=== PATIENT | female | born 1950 | race Caucasian/White ===

== ENCOUNTER 2022-05-26 09:25 | Emergency (ER) | payer MEDICARE, SELFPAY ==
[2022-05-26 09:31] VITALS: BP 151/117; PULSE 100; RESP 16; O2SAT 98; BMI 20.4
--- NOTE | 2022-05-26 10:00 | CRLHL7_ITS ---
For Patients: As a result of the Century Cures Act, medical imaging exams and procedure reports are released immediately into your electronic medical record. You may view this report before your referring provider. If you have questions, please contact your health care provider. INDICATION: CHEST TIGHTNESS. HX OF BREAST AND THYROID CANCER COMPARISON: None TECHNIQUE: CT volumetric acquisition was performed of the thorax during intravenous infusion of 95 cc Isovue 370 nonionic intravenous contrast. Please note that all CT scans at this facility use dose modulation, iterative reconstruction, and/or weight-based dosing when appropriate to reduce radiation dose to as low as reasonably achievable. FINDINGS: No pulmonary embolism is present. Severe pectus excavatum deformity noted. Postoperative changes to the left breast and left axilla. Right breast implant with lobular contour and adjacent fluid laterally. Postop changes to the right breast also noted with surgical clips. No aortic dissection. Coarse calcifications right thyroid lobe. No acute fracture. Areas of atelectasis/scarring are present within the right lower lobe. No pleural effusion. No pneumothorax. No adenopathy. Thickening of the left adrenal gland. IMPRESSION: No evidence of pulmonary thromboembolism. Right lower lobe atelectasis/scarring. Chronic changes to the right breast implant with suspicion of chronic rupture. There is fluid adjacent to the lateral aspect of the implant. Surgical consultation with the patient`s plastic surgeon may be useful as an outpatient. Please note that all CT scans at this facility use dose modulation, iterative reconstruction, and/or weight-based dosing when appropriate to reduce radiation dose to as low as reasonably achievable. Dictated by Bryan Stapleton MD @ 05/26/2022 12:02:43 PM (Electronically Signed)
--- NOTE | 2022-05-26 10:02 | ED_ITS ---
HPI - General Adult General Time Seen by Provider: 10:03 Date Seen: 05/26/22 Chief complaint: Unspecified Complaint, Adult Stated complaint: thyroid cancer, not feeling well Time Seen by Provider: 05/26/22 10:00 Source: patient Mode of arrival: ambulatory Limitations: no limitations History of Present Illness HPI narrative: Patient is a 71-year-old female who has a history of thyroid cancer, apparently scheduled to get this removed upcoming in [place] with an ENT cancer surgeon. She reports that she has had some shakiness, jitteriness, chest tightness over the last few days, her blood pressure is noted be elevated today. She is generally anxious about her situation. She has had no leg swelling or edema bleeding or clotting problems. Patient does have a history of what sounds like rheumatoid arthritis and osteoarthritis. She sees Dr. Donald for primary care. She has had COVID in the past, she denies fever chills, she has had occasional sinus infection, occasional cough. She really does not describe chest pain now she states if she turns a certain way, or takes a deep breath she can feel some right-sided chest tightness. Related Data Previous Rx's Medication Instructions Recorded lorazepam 0.5 mg tablet (Ativan) 0.5 mg PO BID PRN #14 tabs 05/26/22 Review of Systems Status of ROS: Reports: 10 or more systems reviewed and unremarkable except as noted in History and below PFSH PFS Social History Smoking Status: Former smoker How often do you have a drink containing alcohol: 4 or more times a week How many standard drinks containing alcohol do you have on a typical day: 7 to 9 How often do you have six or more drinks on one occasion: Daily or almost daily AUDIT-C Alcohol total score: 11 Non-prescribed substance use: other [facility]-pres[facility] Exam Narrative: Exam Narrative: Objective: Patient is alert or x3, slightly anxious Vital signs show elevated blood pressure HEENT is unremarkable neck shows some fullness on the right side Chest is clear Heart rhythm regular heart murmur, no palpable chest wall pain Abdomen benign soft nontender no masses Extremities are no edema neurologic nonfocal Skin warm and dry Good peripheral perfusion noted. Const: Vital Signs, click to edit/add: Vital Signs - 24 hr 05/26/22 09:31 05/26/22 10:42 05/26/22 11:02 Pulse Rate [Left P ulse Oximeter] 100 Respiratory Rate 16 Blood Pressure 152/122 H Blood Pressure [Le ft Upper Arm] 151/117 H Pulse Oximetry 98 100 Oxygen Delivery Me thod Room Air 05/26/22 12:16 05/26/22 12:13 Pulse Rate [Left P ulse Oximeter] Respiratory Rate Blood Pressure 156/102 H Blood Pressure [Le ft Upper Arm] 156/104 H Pulse Oximetry Oxygen Delivery Me thod Course Vital Signs Vital signs: Initial Vital Signs Temperature Source Temporal Artery Scan 05/26/22 09:31 Pulse Rate 100 05/26/22 09:31 Pulse Rhythm 05/26/22 09:31 Pulse Strength 3+ Normal 05/26/22 09:31 Respiratory Rate 16 05/26/22 09:31 Blood Pressure 151/117 H 05/26/22 09:31 Blood Pressure Mean 128 05/26/22 09:31 Blood Pressure Position Sitting 05/26/22 09:31 Pulse Oximetry 98 05/26/22 09:31 Oxygen Delivery Method 05/26/22 09:31 Vital Signs Pulse Rate 100 05/26/22 09:31 Respiratory Rate 16 05/26/22 09:31 Blood Pressure 151/117 H 05/26/22 09:31 Pulse Oximetry 98 05/26/22 09:31 Oxygen Delivery Method 05/26/22 09:31 Pulse Rate 100 05/26/22 09:31 Respiratory Rate 16 05/26/22 09:31 Blood Pressure 156/104 H 05/26/22 12:16 Pulse Oximetry 100 05/26/22 10:42 Oxygen Delivery Method 05/26/22 09:31 Medical Decision Making MDM Narrative Medical decision making narrative: Patient's history of thyroid cancer scheduled to be removed, she is anxious. She also reports he has been drinking more lately to try and take down some of the anxiety. Will check an alcohol level, IV fluids, Ativan for anxiety, will check EKG, troponin, chest CT scan given her chest tightness and history of cancer to rule out PE. Laboratory studies electrolytes. TSH. Disposition pending findings and lab studies Addendum: Patient's CT scan of the chest shows no evidence of pulmonary thromboembolism there is some right lower lobe atelectasis scarring chronic change of the right breast implant with suspicion of chronic rupture. Blood pressure diastolic remains a little bit elevated this will be retested CRP is negative white count is normal hemoglobin is normal glucose is nonfasting at 1:35 a.m. electrolytes otherwise unremarkable P on creatinine normal CRP less than 0.5 proBNP 11 50 alcohol level less than 0.01 negative COVID influenza and RSV. This point I think will recheck the patient's blood pressure and she should have this redone in the clinic as well. Blood pressure on recheck was 150/105 to, the patient will be given a few Ativan for home given her anxiety level. Follow up with regular doctor as needed Lab Data Labs: Lab Results 05/26/22 05/26/22 05/26/22 Range/Units 10:32 10:33 10:33 WBC 9.72 (4.50-11.00) K/uL RBC 5.31 H (4.00-5.20) m/uL Hgb 14.9 (12.0-16.0) gm/dL Hct 46.5 (33.0-51.0) % MCV 88 (80-100) fL MCH 28 (26-34) pg MCHC 32 (32-36) gm/dL RDW Coeff of [place]ubham 16.3 H (11.5-15.5) % Plt Count 320 (140-440) K/uL Neut % (Auto) 79.5 H (42.0-72.0) % Lymph % (Auto) 7.8 L (20-44) % [place] % (Auto) 11.8 H (0.0-11.0) % Eos % (Auto) 0.1 (0.0-7.0) % Baso % (Auto) 0.4 (0.0-3.0) % Neut # (Auto) 7.70 H (1.7-7.0) K/uL Lymph # (Auto) 0.80 L (0.90-2.90) K/uL [place] # (Auto) 1.10 H (0.00-0.90) K/UL Eos # (Auto) 0.01 (0.00-0.50) K/uL Baso # (Auto) 0.04 (0.00-0.30) K/uL Abs Immat Gran (auto) 0.04 (0.00-0.30) K/uL INR (0.91-1.10) Sodium 136 (135-149) mmol/L Potassium 4.3 (3.6-5.1) mmol/L Chloride 102 (96-114) mmol/L Carbon Dioxide 27 (20-32) mmol/L BUN 7 (7-30) mg/dL Creatinine 0.7 (0.5-1.5) mg/dL Estimated Creat Clear 48.03 Estimated GFR 92 ml/min Glucose 135 H (60-115) mg/dL Calcium 10.4 (8.4-10.6) mg/dL Total Bilirubin (0.1-1.5) mg/dL Direct Bilirubin (0.0-0.5) mg/dL AST (12-35) U/L ALT (4-35) U/L Alkaline Phosphatase (40-150) U/L Troponin I (0.01-0.04) ng/mL C-Reactive Protein < 0.5 L (0.5-1.0) mg/dL NT-Pro-B Natriuret Pep (0-125) PG/mL Total Protein (6.0-8.3) g/dL Albumin (3.3-5.0) g/dL TSH (0.270-4.20) uIU/mL Ethyl Alcohol (0.01-0.03) % SARS-CoV-2 (PCR) Negative SARS-CoV-2 (Negative) Influenza Type A (PCR) Negative PCR FLU A (Negative) Influenza Type B (PCR) Negative PCR FLU B (Negative) RSV (PCR) Negative PCR RSV (Negative) 05/26/22 05/26/22 05/26/22 Range/Units 10:33 10:33 10:33 WBC (4.50-11.00) K/uL RBC (4.00-5.20) m/uL Hgb (12.0-16.0) gm/dL Hct (33.0-51.0) % MCV (80-100) fL MCH (26-34) pg MCHC (32-36) gm/dL RDW Coeff of [place]ubham (11.5-15.5) % Plt Count (140-440) K/uL Neut % (Auto) (42.0-72.0) % Lymph % (Auto) (20-44) % [place] % (Auto) (0.0-11.0) % Eos % (Auto) (0.0-7.0) % Baso % (Auto) (0.0-3.0) % Neut # (Auto) (1.7-7.0) K/uL Lymph # (Auto) (0.90-2.90) K/uL [place] # (Auto) (0.00-0.90) K/UL Eos # (Auto) (0.00-0.50) K/uL Baso # (Auto) (0.00-0.30) K/uL Abs Immat Gran (auto) (0.00-0.30) K/uL INR 0.92 (0.91-1.10) Sodium (135-149) mmol/L Potassium (3.6-5.1) mmol/L Chloride (96-114) mmol/L Carbon Dioxide (20-32) mmol/L BUN (7-30) mg/dL Creatinine (0.5-1.5) mg/dL Estimated Creat Clear Estimated GFR ml/min Glucose (60-115) mg/dL Calcium (8.4-10.6) mg/dL Total Bilirubin 1.2 (0.1-1.5) mg/dL Direct Bilirubin 0.1 (0.0-0.5) mg/dL AST 52 H (12-35) U/L ALT 30 (4-35) U/L Alkaline Phosphatase 131 (40-150) U/L Troponin I 0.04 (0.01-0.04) ng/mL C-Reactive Protein (0.5-1.0) mg/dL NT-Pro-B Natriuret Pep 1150 H (0-125) PG/mL Total Protein 7.2 (6.0-8.3) g/dL Albumin 4.5 (3.3-5.0) g/dL TSH 3.010 (0.270-4.20) uIU/mL Ethyl Alcohol (0.01-0.03) % SARS-CoV-2 (PCR) (Negative) Influenza Type A (PCR) (Negative) Influenza Type B (PCR) (Negative) RSV (PCR) (Negative) 05/26/22 Range/Units 10:33 WBC (4.50-11.00) K/uL RBC (4.00-5.20) m/uL Hgb (12.0-16.0) gm/dL Hct (33.0-51.0) % MCV (80-100) fL MCH (26-34) pg MCHC (32-36) gm/dL RDW Coeff of [place] (11.5-15.5) % Plt Count (140-440) K/uL Neut % (Auto) (42.0-72.0) % Lymph % (Auto) (20-44) % [place] % (Auto) (0.0-11.0) % Eos % (Auto) (0.0-7.0) % Baso % (Auto) (0.0-3.0) % Neut # (Auto) (1.7-7.0) K/uL Lymph # (Auto) (0.90-2.90) K/uL [place] # (Auto) (0.00-0.90) K/UL Eos # (Auto) (0.00-0.50) K/uL Baso # (Auto) (0.00-0.30) K/uL Abs Immat Gran (auto) (0.00-0.30) K/uL INR (0.91-1.10) Sodium (135-149) mmol/L Potassium (3.6-5.1) mmol/L Chloride (96-114) mmol/L Carbon Dioxide (20-32) mmol/L BUN (7-30) mg/dL Creatinine (0.5-1.5) mg/dL Estimated Creat Clear Estimated GFR ml/min Glucose (60-115) mg/dL Calcium (8.4-10.6) mg/dL Total Bilirubin (0.1-1.5) mg/dL Direct Bilirubin (0.0-0.5) mg/dL AST (12-35) U/L ALT (4-35) U/L Alkaline Phosphatase (40-150) U/L Troponin I (0.01-0.04) ng/mL C-Reactive Protein (0.5-1.0) mg/dL NT-Pro-B Natriuret Pep (0-125) PG/mL Total Protein (6.0-8.3) g/dL Albumin (3.3-5.0) g/dL TSH (0.270-4.20) uIU/mL Ethyl Alcohol < 0.01 L (0.01-0.03) % SARS-CoV-2 (PCR) (Negative) Influenza Type A (PCR) (Negative) Influenza Type B (PCR) (Negative) RSV (PCR) (Negative) Discharge Plan Discharge Clinical Impression: Cancer of thyroid, Chest tightness Prescriptions: New lorazepam [Ativan] 0.5 mg tablet 0.5 mg PO BID PRNQty: 14 0RF Follow Up/Referrals: Elise Alvarez DO [Primary Care Provider] -
[2022-05-26] MEDS: 0.9 % SODIUM CHLORIDE 1000 ml 1,000 ML 6000 ML IV (10:38)
[2022-05-26] MEDS: LORazepam 2 MG/ML inj 1 MG IVP (10:38)
[2022-05-26 10:42] VITALS: O2SAT 100
[2022-05-26 10:47] LABS: Basophils Absolute Auto 0.04 K/uL (0.00-0.30); Basophils Percent Auto 0.4 % (0.0-3.0); Eosinophils Absolute Auto 0.01 K/uL (0.00-0.50); Eosinophils Percent Auto 0.1 % (0.0-7.0); Hematocrit 46.5 % (33.0-51.0); Hemoglobin* 14.9 gm/dL (12.0-16.0); Immature Granulocytes Abs Auto 0.04 K/uL (0.00-0.30); Lymphocytes Percent Auto 7.8 % (20-44); Mean Corpuscular HGB Conc 32 gm/dL (32-36); Mean Corpuscular Hemoglobin 28 pg (26-34); Mean Corpuscular Volume 88 fL (80-100); Monocytes Percent Auto 11.8 % (0.0-11.0); Neutrophils Percent Auto 79.5 % (42.0-72.0); Platelet Count* 320 K/uL (140-440); RDW Coefficient of Variation % 16.3 % (11.5-15.5); Red Blood Count 5.31 m/uL (4.00-5.20); White Blood Count* 9.72 K/uL (4.50-11.00)
[2022-05-26 10:49] LABS: Slide Review Reflex No
[2022-05-26 11:01] LABS: Chloride* 102 mmol/L (96-114); Potassium* 4.3 mmol/L (3.6-5.1); Sodium* 136 mmol/L (135-149)
[2022-05-26 11:02] VITALS: BP 152/122
[2022-05-26 11:02] LABS: INR 0.92 (0.91-1.10); Prothrombin Time 12.9 Seconds
[2022-05-26 11:03] LABS: Albumin* 4.5 g/dL (3.3-5.0)
[2022-05-26 11:04] LABS: Creatinine* 0.7 mg/dL (0.5-1.5); Est. Creatinine Clearance* 48.03; Estimated Glomerular Filt Rate 92 ml/min
[2022-05-26 11:05] LABS: Aspartate Amino Transferase* 52 U/L (12-35); Bilirubin Direct* 0.1 mg/dL (0.0-0.5); Bilirubin Total* 1.2 mg/dL (0.1-1.5); Blood Urea Nitrogen* 7 mg/dL (7-30); Calcium* 10.4 mg/dL (8.4-10.6); Carbon Dioxide* 27 mmol/L (20-32); Glucose* 135 mg/dL (60-115); Total Protein* 7.2 g/dL (6.0-8.3)
[2022-05-26 11:06] LABS: Alanine Aminotransferase* 30 U/L (4-35); Alkaline Phosphatase* 131 U/L (40-150)
[2022-05-26 11:07] LABS: Ethanol* < 0.01 % (0.01-0.03)
[2022-05-26 11:08] LABS: C Reactive Protein* < 0.5 mg/dL (0.5-1.0)
[2022-05-26 11:14] LABS: NT Pro B Type NatriureticPept* 1150 PG/mL (0-125)
[2022-05-26 11:17] LABS: Troponin I* 0.04 ng/mL (0.01-0.04)
[2022-05-26 11:38] LABS: PCR FLU A Negative PCR FLU A (Negative); PCR FLU B Negative PCR FLU B (Negative); PCR RSV Negative PCR RSV (Negative)
[2022-05-26 11:40] LABS: SARS PCR* Negative SARS-CoV-2 (Negative)
[2022-05-26 12:13] VITALS: BP 156/102
[2022-05-26 12:16] VITALS: BP 156/104
== END 2022-05-26 12:28 | disposition home or self-care (01) ==
LOC: ED 11:04
PROVIDERS: Emergency Provider Family Medicine; PCP Family Medicine
DX: R07.89 Other chest pain (principal); C73 Malignant neoplasm of thyroid gland
CPT/HCPCS: 36415; 71260; 80048; 80076; 82077; 83880; 84443; 84484; 85025; 85610; 86140; 87502; 87634; 87635; 93005; 94761; 96374; 99284; 99285; J2060; J7030; Q9967

== ENCOUNTER 2022-10-29 13:33 | Outpatient (CLI) | payer MEDICARE, SELFPAY ==
--- NOTE | 2022-10-29 14:00 | CRLHL7_ITS ---
For Patients: As a result of the Century Cures Act, medical imaging exams and procedure reports are released immediately into your electronic medical record. You may view this report before your referring provider. If you have questions, please contact your health care provider. BILATERAL BREAST MRI WITHOUT AND WITH GADOLINIUM, 10/29/2022 CLINICAL HISTORY: BILATERAL mastectomy 12/11/2009 due to LEFT breast cancer. Patient has had silicone breast implant revision reconstruction on the RIGHT with LEFT breast reconstruction without implant. Implant had been removed from the LEFT chest previously. INDICATION FOR BREAST MRI: Evaluate implant for rupture.Screen for malignancy. COMPARISON STUDIES: None. CONTRAST: Dotarem 15 mL. TECHNIQUE: The patient was positioned prone using a breast coil. Multiple imaging sequences were obtained using 1-1.5 mm thick slices with no gap. The image sequences include T2-weighted STIR in the axial plane, T1-weighted nonfat-saturated gradient echo in the axial plane, pre- and post-contrast T1-weighted FLASH 3D with fat suppression in the axial plane, and T1-weighted FLASH high-resolution 3D with fat suppression in the sagittal plane. Image post-processing was performed on a [employer] workstation. Complex 3D rendering including maximum intensity projections (MIPS) and volumetric renderings were obtained to optimize visualization of the extent of pathology and relationship to the nipple, skin, and chest wall. This aids in determining feasibility of breast conservation surgery. Subtraction, multiplanar reconstruction, mean curve determination, and angiogenesis mapping were also performed. The study was technically adequate. FINDINGS: Breast Density: Not applicable. Breast Background Enhancement: Not applicable. RIGHT Breast: RIGHT reconstructed breast shows an extracapsular rupture of the RIGHT implant. There is free silicone seen laterally. There is positive keyhole signs of the implant. No suspicious mass or non mass enhancement in the reconstructed RIGHT breast. LEFT Breast: LEFT reconstructed breast is negative. Lymph Nodes: No enlarged lymph nodes. IMPRESSIONS: Extracapsular rupture RIGHT silicone breast implant. Negative for signs of malignancy. RECOMMENDATION: Follow up as clinically needed. BI-RADS: BI-RADS Category 2: Benign. Oralia Elliott M.D. Body/Breast Radiologist [email or web address] [email or web address]/[email or web address] JR/Dictated by: Oralia Elliott MD @ 10/30/2022 1:24:00 PM (Electronically Signed)
== END 2022-10-29 13:34 | disposition home or self-care (01) ==
PROVIDERS: PCP Family Medicine; Visit Provider Plastic Surgery
DX: T85.43XA Leakage of breast prosthesis and implant, initial encounter (principal); Z12.31 Encounter for screening mammogram for malignant neoplasm of breast
CPT/HCPCS: 77047

== ENCOUNTER 2024-12-23 09:45 | Emergency (ER) | payer MEDICARE, BC, SELFPAY ==
--- OUTSIDE RECORDS SUMMARY | 2021-02-21 09:10 | XMS_ITS | Continuity of Care Document ---
Author Organization [facility] Address [address] [place] [address] Phone Care Team Providers Care Cost Controller Name Role Phone Otis Marin MD Unavailable Unavailable Allergies, Adverse Reactions, Alerts Substance Reaction Status Criticality ANESTHESIA TRAY Active No Informati on Medications Medication Instructions Dosage Effective Dates (start - stop) Status Comments methotrexate sodium 2.5 mg tablet take 10 (25MG) by ORAL route every week all tabs once per week 25 MG - Active ibuprofen 200 mg tablet take 2 tablet (400MG) by oral route as needed - Active VITAMIN D3 (unknown strength) take daily Not Available - Active Procedures Procedure Date Office/Outpatient Visit, Est Routine Venipuncture Rbc Sed Rate, Nonautomated Assay Of Serum Albumin Assay Of Creatinine Transferase (Ast) (Sgot) Alanine Amino (Alt) (Sgpt) CReactive Protein Complete Cbc WAuto Diff Wbc Office/Outpatient Visit, Est Routine Venipuncture Rbc Sed Rate, Nonautomated Assay Of Serum Albumin Assay Of Creatinine Transferase (Ast) (Sgot) Alanine Amino (Alt) (Sgpt) CReactive Protein Complete Cbc WAuto Diff Wbc Office/Outpatient Visit, Est Office/Outpatient Visit, Est Office/Outpatient Visit, Est Routine Venipuncture Complete Cbc WAuto Diff Wbc Rbc Sed Rate, Nonautomated Assay Of Serum Albumin Assay Of Creatinine Transferase (Ast) (Sgot) Alanine Amino (Alt) (Sgpt) CReactive Protein Vitamin D 25 Hydroxy Office/Outpatient Visit, Est Routine Venipuncture Complete Cbc WAuto Diff Wbc Rbc Sed Rate, Nonautomated Assay Of Serum Albumin Assay Of Creatinine Transferase (Ast) (Sgot) Alanine Amino (Alt) (Sgpt) CReactive Protein Vitamin D 25 Hydroxy Office/Outpatient Visit, Est Routine Venipuncture Complete Cbc WAuto Diff Wbc Rbc Sed Rate, Nonautomated Assay Of Serum Albumin Assay Of Creatinine Transferase (Ast) (Sgot) Alanine Amino (Alt) (Sgpt) CReactive Protein Vitamin D 25 Hydroxy Office/Outpatient Visit, Est Routine Venipuncture Complete Cbc WAuto Diff Wbc Rbc Sed Rate, Nonautomated CReactive Protein Assay Of Serum Albumin Assay Of Creatinine Transferase (Ast) (Sgot) Alanine Amino (Alt) (Sgpt) Office/Outpatient Visit, Est Routine Venipuncture Complete Cbc WAuto Diff Wbc Assay Of Serum Albumin Assay Of Creatinine Transferase (Ast) (Sgot) Alanine Amino (Alt) (Sgpt) Office/Outpatient Visit, Est Specimen Handling Rbc Sed Rate, Nonautomated CReactive Protein Assay Of Serum Albumin Assay Of Ck (Cpk) Assay Of Creatinine Assay Alkaline Phosphatase Transferase (Ast) (Sgot) Assay Of Blood/Uric Acid Dxa Bone Density, Axial Office/Outpatient Visit, Est Office/Outpatient Visit, Est Routine Venipuncture Complete Cbc WAuto Diff Wbc Rbc Sed Rate, Nonautomated CReactive Protein Assay Of Serum Albumin Assay Of Creatinine Transferase (Ast) (Sgot) Alanine Amino (Alt) (Sgpt) Office/Outpatient Visit, Est Office/Outpatient Visit, Est Routine Venipuncture Complete Cbc WAuto Diff Wbc Rbc Sed Rate, Nonautomated CReactive Protein Assay Of Serum Albumin Assay Of Creatinine Transferase (Ast) (Sgot) Alanine Amino (Alt) (Sgpt) Office/Outpatient Visit, Est Routine Venipuncture Complete Cbc WAuto Diff Wbc Assay Of Serum Albumin Assay Of Creatinine Transferase Ast Sgot Alanine Amino (Alt) (Sgpt) Drain/Inject, Joint/Bursa Triamcinolone Hexacetonl Inj Office/Outpatient Visit, Est Surgical Trays Routine Venipuncture Specimen Handling CReactive Protein Complete Cbc WAuto Diff Wbc Rbc Sed Rate, Nonautomated Assay Of Serum Albumin Assay Of Creatinine Transferase Ast Sgot Alanine Amino Alt Sgpt Office/Outpatient Visit, Est Routine Venipuncture CReactive Protein Complete Cbc WAuto Diff Wbc Rbc Sed Rate, Nonautomated Assay Of Serum Albumin Assay Of Creatinine Transferase Ast Sgot Alanine Amino Alt Sgpt Office/Outpatient Visit, Est Routine Venipuncture Specimen Handling CReactive Protein Complete Cbc WAuto Diff Wbc Rbc Sed Rate, Nonautomated Assay Of Serum Albumin Assay Of Creatinine Transferase Ast Sgot Alanine Amino Alt Sgpt Office/Outpatient Visit, Est Routine Venipuncture CReactive Protein Complete Cbc WAuto Diff Wbc Rbc Sed Rate, Nonautomated Assay Of Serum Albumin Assay Of Creatinine Transferase Ast Sgot Alanine Amino Alt Sgpt Advance Directives Directive Yes / No Effective Date File Name No Information Encounters Encounter Description Practice Location Reason(s) For Visit Diagnoses Date Provider Providers Copied on Encounter [facility] , [address], [place], [address], [place] tel:[phone] [facility] , No Information 1 Tomas Berg. [facility] [address], [place], [address], [place]. tel:[phone] Office/Outpa tient Visit, Est [facility] , [address], [place], [address], [place] tel:[phone] [facility] , RA w/ rheumatoid factor of multiple sites w/o organ involvementO A Primary osteoarthrit is of knee, bilateralThe rapeutic drug monitoring - 0 Tomas Berg. [facility] [address], [place], [address], [place]. tel:[phone] Referring Provider: Otis Alvarenga, [facility] [address], [place], [address]. tel:[phone] [facility] , [address], [place], [address], [place] [phone] [facility] , No Information 9 Tomas Berg. [facility] [address], [place], [address], [place]. tel:[phone] Office/Outpa tient Visit, Est [facility] , [address], [place], [address], [place] tel:[phone] [facility] , RA w/ rheumatoid factor of multiple sites w/o organ involvementO A Primary osteoarthrit is of knee, bilateralThe rapeutic drug monitoring 9 Tomas Berg. [facility] [address], [place], [address], [place]. tel:[phone] Referring Provider: Otis Alvarenga, [facility] [address], [place], [address]. tel:[phone] Office/Outpa tient Visit, Est [facility] , [address], [place], [address], [place] tel:[phone] [facility] , RA w/ rheumatoid factor of multiple sites w/o organ involvementO A Primary osteoarthrit is of knee, bilateralThe rapeutic drug monitoring 8 Tomas Berg. [facility] [address], [place], [address], [place]. tel:[phone] Referring Provider: Otis Alvarenga, [facility] [address], [place], [address]. tel:[phone] Office/Outpa tient Visit, Est [facility] , [address], [place], [address], [place] tel:[phone] [facility] , RA w/ rheumatoid factor of multiple sites w/o organ involvementO A Primary osteoarthrit is of knee, bilateralThe rapeutic drug monitoring 7 Tomas Berg. [facility] [address], [place], [address], [place]. tel:[phone] Referring Provider: Otis Alvarenga, [facility] [address], [place], [address]. tel:[phone] Office/Outpa tient Visit, Est [facility] , [address], [place], [address], [place] tel:[phone] [facility] , Vitamin D deficiencyRA w/ rheumatoid factor of multiple sites w/o organ involvementO A Primary osteoarthrit is of knee, bilateralThe rapeutic drug monitoring 6 Tomas Berg. [facility] [address], [place], [address], [place]. tel:[phone] Referring Provider: Otis Alvarenga, [facility] [address], [place], [address]. tel:[phone] Office/Outpa tient Visit, Est [facility] , [address], [place], [address], [place] tel:[phone] [facility] , Rheumatoid arthritis (chief complaint) RA w/ rheumatoid factor of multiple sites w/o organ involvementT herapeutic drug monitoringOA Primary osteoarthrit is of knee, bilateralVit rain D deficiency 6 Tomas Berg. [facility] [address], [place], [address], [place]. tel:[phone] Referring Provider: Otis Alvarenga, [facility] [address], [place], [address]. tel:[phone] Office/Outpa tient Visit, Est [facility] , [address], [place], [address], [place] tel:[phone] [facility] , Rheumatoid arthritis (chief complaint) RA w/ rheumatoid factor of multiple sites w/o organ involvementT herapeutic drug monitoringOA Primary osteoarthrit is of knee, bilateralVit rain D deficiency 6 Tomas Berg. [facility] [address], [place], [address], [place]. tel:[phone] Referring Provider: Otis Alvarenga, [facility] [address], [place], [address]. tel:[phone] Office/Outpa tient Visit, Est [facility] , [address], [place], [address], [place] tel:[phone] [facility] , Rheumatoid arthritis (chief complaint) RA w/ rheumatoid factor of multiple sites w/o organ involvementT herapeutic drug monitoringOA Primary osteoarthrit is of knee, bilateral Nov-2 5 Tomas Berg. [facility] [address], [place], [address], [place]. tel:[phone] Referring Provider: Otis Alvarenga, [facility] [address], [place], [address]. tel:[phone] Office/Outpa tient Visit, Est [facility] , [address], [place], [address], [place] tel:[phone] [facility] , Rheumatoid arthritis (chief complaint) Rheumatoid arthritisThe rapeutic Drug MonitoringOs teoarthrosis , localized, primary, involving lower leg Tomas Berg. [facility] [address], [place], [address], [place]. tel:[phone] Referring Provider: Otis Alvarenga, [facility] [address], [place], [address]. tel:[phone] Office/Outpa tient Visit, Est [facility] , [address], [place], [address], [place] tel:[phone] [facility] , Rheumatoid arthritis (chief complaint) Rheumatoid arthritisThe rapeutic Drug MonitoringOs teoarthrosis , localized, primary, involving lower legOsteoporo sis due to corticostero ids 5 Tomas Berg. [facility] [address], [place], [address], [place]. tel:[phone] Referring Provider: Otis Alvarenga, [facility] [address], [place], [address]. tel:[phone] [facility] , [address], [place], [address], [place] tel:[phone] [facility] , No Information 5 Tomas Perez [facility] [address], [place], [address], [place]. tel:[phone] Referring Provider: Otis Alvarenga, [facility] [address], [place], [address]. tel:[phone] Office/Outpa tient Visit, Est [facility] , [address], [place], [address], [place] tel:[phone] [facility] , Rheumatoid Arthritis (chief complaint)Os teoarthritis (chief complaint) Rheumatoid ArthritisOst eoarthrosis, localized, primary, involving lower legDisorder of bone and cartilage, unspecified 4 Tomas Perez [facility] [address], [place], [address], [place]. tel:[phone] Referring Provider: Otis Alvarenga, [facility] [address], [place], [address]. tel:[phone] Office/Outpa tient Visit, Est [facility] , [address], [place], [address], [place] tel:[phone] [facility] , Rheumatoid Arthritis (chief complaint)Os teoarthritis (chief complaint)Br east cancer (chief complaint) Rheumatoid ArthritisThe rapeutic Drug MonitoringOs teoarthrosis , localized, primary, involving lower leg 4 Tomas Perez [facility] [address], [place], [address], [place]. tel:[phone] Referring Provider: Otis Alvarenga, [facility] [address], [place], [address]. tel:[phone] Office/Outpa tient Visit, Est [facility] , [address], [place], [address], [place] tel:[phone] [facility] , Rheumatoid Arthritis (chief complaint)Os teoarthritis (chief complaint)Br east cancer (chief complaint) Rheumatoid ArthritisThe rapeutic Drug MonitoringOs teoarthrosis , localized, primary, involving lower leg 4 Tomas Berg. [facility] [address], [place], [address], [place]. tel:[phone] Referring Provider: Otis Alvarenga, [facility] [address], [place], [address]. tel:[phone] Office/Outpa tient Visit, Est [facility] , [address], [place], [address], [place] tel:[phone] [facility] , Rheumatoid Arthritis (chief complaint)Os teoarthritis (chief complaint) Rheumatoid ArthritisThe rapeutic Drug MonitoringOs teoarthrosis , localized, primary, involving lower leg 4 Tomas Berg. [facility] [address], [place], [address], [place]. tel:[phone] Referring Provider: Otis Alvarenga, [facility] [address], [place], [address]. tel:[phone] Office/Outpa tient Visit, Est [facility] , [address], [place], [address], [place] tel:[phone] [facility] , Rheumatoid Arthritis (chief complaint)Os teoarthritis (chief complaint)Br east cancer (chief complaint) Malignant Neoplasm, BreastRheuma toid ArthritisThe rapeutic Drug MonitoringOs teoarthrosis , localized, primary, involving lower leg 3 Tomas Berg. [facility] [address], [place], [address], [place]. tel:[phone] Referring Provider: Otis Alvarenga, [facility] [address], [place], [address]. tel:[phone] Office/Outpa tient Visit, Est [facility] , [address], [place], [address], [place] tel:[phone] [facility] , Rheumatoid Arthritis (chief complaint)Br east cancer (chief complaint) Rheumatoid ArthritisThe rapeutic Drug MonitoringOs teoarthrosis , localized, primary, involving lower leg 3 Tomas Perez [facility] [address], [place], [address], [place]. tel:[phone] Referring Provider: Otis Alvarenga, [facility] [address], [place], [address]. tel:[phone] Office/Outpa tient Visit, Est [facility] , [address], [place], [address], [place] tel:[phone] [facility] , Rheumatoid Arthritis (chief complaint)Br east cancer (chief complaint) Rheumatoid ArthritisThe rapeutic Drug MonitoringMa lignant neoplasm of other specified sites of female breast 3 Tomas Berg. [facility] [address], [place], [address], [place]. tel:[phone] Referring Provider: Otis Alvarenga, [facility] [address], [place], [address]. tel:[phone] Office/Outpa tient Visit, Est [facility] , [address], [place], [address], [place] tel:[phone] [facility] , Rheumatoid Arthritis (chief complaint) Rheumatoid ArthritisThe rapeutic Drug MonitoringUn specified vitamin d deficiency 201 2 Tomas Berg. [facility], [place], [address], [place]. tel:[phone] Referring Provider: Otis Alvarenga, [facility] [address], [place], [address]. tel:[phone] Office/Outpa tient Visit, Est [facility] , [facility], [place], [address], [place] tel:[phone] [facility] , Rheumatoid Arthritis (chief complaint)Mo nitor chronic high risk medications (chief complaint) Rheumatoid ArthritisThe rapeutic Drug Monitoring 2 Tomas Berg. [facility] [address], [place], [address], [place]. tel:[phone] Referring Provider: Otis Alvarenga, [facility] [address], [place], [address]. tel:[phone] Family History Family Member Type Diagnosis Age At Onset No Information Payers Payer name Insurance type Covered democrat ID Authorlaverna tixiomara(s) [employer] Medicare Plans CI [id number] Social History Type Description Quantity Date Captured Comments Sex Female Smoking Status No Information Chief Complaint And Reason For Visit No Information Reason For Referral Reason For Referral No Information History Of Present Illness Encounter Date Complaint History Of Prese nt Illness Rheumatoid arthritis Rheumatoid arthritis Rheumatoid arthritis Rheumatoid arthritis Rheumatoid arthritis Functional Status Date Functional Assessmen t No Information Instructions Date Instruction Additional Infor mation No Information Assessments Type Assessment Date No Information Patient Care Teams Name Effective Dates (start - stop) Status Members No Information
[2024-12-23] VITALS (7 sets, daily range): BP systolic 139–166; BP diastolic 91–119; PULSE 78–91; RESP 16–18; TEMP 36.8; O2SAT 95–99; BMI 21.0
--- OUTSIDE RECORDS SUMMARY | 2024-12-23 09:48 | XMS_ITS | Clinical Summary ---
Author Organization [facility] Address [address] [place] [id number] Care Team Providers Care Front Line Leader Name Role Phone Elise Alvarez Primary Care Provider Gucci Pakrinson MD Unavailable Allergies No known active allergies Medications prednisoLONE acetate 1% ophthalmic (ECONOPRED PLUS, PRED FORTE, OMNIPRED) suspension PLACE ONE DROP IN LEFT EYE DAILY. 09/01/19 23 Active b complex vitamins (VITAMIN B COMPLEX) capsuleIndication s:Alcohol dependence, uncomplicated (HC) Take 1 Capsule by mouth once daily. 0 02/11/20 23 Active turmeric 400 mg capIndications:Rh eumatoid arthritis involving multiple sites with positive rheumatoid factor (HC) Take 1 Capsule by mouth once daily. 0 02/11/20 23 Active medication order composer alpha glucan mushroom supplement. 500mg daily 0 03/06/20 23 Active multivitamin capsule Take 1 Capsule by mouth once daily. systemic digestive enzyme: Protease, bromelain, papain Boswiellia orange bioflavanoid complex yucca root denisse root extract rutin devils claw root extract alpha-lipoic acid Active cholecalciferol (Vitamin D) 1,000 unit capsule Take 1 Capsule (1,000 units) by mouth once daily. 08/23/19 24 Active MAGNESIUM GLYCINATE ORAL Take 233 mg by mouth. magnesium complex Active docosahexaenoic acid/epa (FISH OIL ORAL) Take by mouth. Activ e valACYclovir (VALTREX) 500 mg tabletIndications :HSV infection TAKE ONE TABLET BY MOUTH EVERY DAY 90 Tablet 1 10/09/19 25 Active naltrexone 50 mg tabletIndications :Alcohol use disorder, severe, dependence (HC) Take 1 Tablet (50 mg) by mouth once daily. 90 Tablet 2 11/01/19 25 Active folic acid 1 mg tabletIndications :Rheumatoid arthritis involving multiple sites with positive rheumatoid factor (HC) Take 1 Tablet (1 mg) by mouth once daily. 90 Tablet 2 12/01/19 25 Active methotrexate 2.5 mg tabletIndications :Rheumatoid arthritis involving multiple sites with positive rheumatoid factor (HC) Take 4 Tablets (10 mg) by mouth once weekly. 16 Tablet 4 12/01/19 25 Active levothyroxine 137 mcg tabletIndications :Thyroid cancer (HC) Take 1 Tablet (137 mcg) by mouth before breakfast. 90 Tablet 3 12/10/19 25 Active folic acid 1 mg tabletIndications :Rheumatoid arthritis involving multiple sites with positive rheumatoid factor (HC) TAKE ONE TABLET BY MOUTH EVERY DAY 90 Tablet 2 01/12/20 24 025 Discontin ued(Reord er (E-cancel not sent)) MILK THISTLE ORAL Take by mouth. 01/25 025 Discontin ued(*Med complete/ Regimen complete/ Level of care change) methotrexate (RHEUMATREX) 2.5 mg tabletIndications :Rheumatoid arthritis involving multiple sites with positive rheumatoid factor (HC) TAKE 4 TABLETS BY MOUTH ONCE WEEKLY 16 Tablet 4 08/31/19 25 025 Discontin ued(Reord er (E-cancel not sent)) levothyroxine (SYNTHROID) 150 mcg tabletIndications :Thyroid cancer (HC) Take 1 Tablet (150 mcg) by mouth before breakfast. 90 Tablet 3 09/12/19 25 025 Discontin ued(Reord er (E-cancel not sent)) LORazepam 0.5 mg tabIndications:Al cohol use disorder, severe, dependence (HC) Take 1 Tablet (0.5 mg) by mouth every 6 hours if needed for Withdrawal Symptoms. 30 Tablet 11/08/19 25 025 Discontin ued(*Med complete/ Regimen complete/ Level of care change) Active Problems Problem Noted Date Diagnosed Date Postoperative hypothyroidism 03/02/2024 Depression, recurrent 09/27/2023 Hx of malignant neoplasm of breast 09/27/2023 Brain atrophy 08/23/2023 Overview (08/23/2023): Suspect due to chronic alcoholism. Alcohol use disorder, severe, dependence 024 S/P breast reconstruction, bilateral 03/17/2023 History of breast cancer 03/17/2023 Right elbow pain 01/28/2023 Papillary thyroid carcinoma 07/09/2022 HTN (hypertension) 07/09/2022 Lipoma of both lower extremities 11/15/2020 Closed displaced transcondylar fracture of right humerus 11/07/2019 Primary osteoarthritis of right elbow 11/07/2019 Bilateral sensorineural hearing loss 08/10/2018 Rheumatoid arthritis involvi ng multiple sites with positive rheumatoid factor 09/09/2016 MRSA carrier 02/10/2012 Breast cancer 07/30/2009 Osteopenia Overview (08/24/2008): DEXA '05, '09 at rheumatology office Pectus excavatum Resolved Problems Problem Noted Date Diagnosed Date Resolved Date Alcohol abuse 08/23/2023 08/23/2023 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 Elise Alvarez D.O. 03/08/2023 2:52 PM Arthritis of right elbow 01/28/202311/2022 Alcohol dependence, uncomplicated 11/15/2020 03/06/2023 Primary osteoarthritis of right knee 09/12/2016 06/27/2022 Rheumatoid arthritis(714.0) 12/01/2012 09/09/2016 Degenerative arthritis of knee 07/23/2011 06/27/2022 Overview (07/23/2011): Right knee: cortisone injection May 2011. RHEUMATOID ARTHRITIS 02/02/2007 014 Encounters Date Type Department Care Team Description 12/23/2024 Nurse Triage [facility] [address] [place] [address] Elise Alvarez, DO withdrawals 12/22/2024 Telephone [facility] [address] [facility] [address] Detert, Elise Portera, DO Alcohol Problem 12/09/2024 Orders Only [facility] [address] [place] [phone] Gucci Parkinson MD <No scans attached> 12/09/2024 Telephone [facility] [address] [place] [phone] Gucci Parkinson MD Results 12/05/2024 1:00 PM CDT Ancillary Procedure [facility] [place] [address] 12/05/2024 Travel 12/01/2024 Orders Only [facility] [place] [address] Detert, Elise Damaris, DO <No scans attached> 11/30/2024 2:15 PM CDT Office Visit [facility] [place] [address] Detert, Elise Damaris, DO Medicare ANNUAL (subsequent) Visit (74 yr/) 11/30/2024 Orders Only [facility] [address] [place] [phone] Gucci Parkinson MD <No scans attached> 11/30/2024 Orders Only [address] [place] [address] Detert, Elise Damaris, DO <No scans attached> 11/30/2024 Travel 11/21/2024 Telephone [facility] [place] [address] Detert, Elise Damaris, DO OTHER (insurance check up) 11/18/2024 Orders Only [facility] Scanner 1 scan: (1-Ord) RCM 11/07/2024 Telephone [facility] [place] [address] Elise Alvarez DO Questions (Lorazepam) 11/02/2024 Nurse Triage [facility] [address] [place] [address] Elise Alvarez DO withdrawl symptoms (Alcohol, started on detox at home and had questions); Questions (Regarding her detox symptoms) 10/31/2024 1:00 PM CDT Office Visit [facility] [address] [place] [address] Elise Alvarez DO Alcohol Problem 10/31/2024 Travel 10/27/2024 Telephone [facility] [address] [place] [address] Elise Alvarez DO Questions (appointment question) 10/17/2024 12:15 PM CDT Phone Office Visit [facility] [address] [place] [phone] Gucci Parkinson MD thyroid cancer 10/17/2024 Travel 10/13/2024 Telephone [facility] [address] [place] [phone] Gucci Parkinson MD Medication Management (Adjustment?) 10/13/2024 Telephone [facility] [address] [place] [address] Elise Alvarez DO Error-please disregard 10/06/2024 Refill [facility] [address] [place] [address] Elise Alvarez DO Refill Request (Valacyclovir) from Last 3 Months Immunizations Immunization Administration Dates Next Due Influenza A (H1N1), Inactivated 07/03/2009 Influenza A (H1N1), Inactiva lawrence (Age >=3 Years) 07/03/2009 Influenza, IIV3 (Age 6-35 mos) 07/03/2009 Influenza, IIV3 (Age >=3 years) 07/03/2009,07/07,07/22/2004 Pneumococcal Conj 20-valent (Prevnar 20) 022 Pneumococcal Poly,23-Valent (Pneumovax) 07/22/20 04 Pneumococcal conj 13-Valent (Prevnar 13) 017 Tdap 01/16/2017,02/02/2007 Zoster (Shingrix-RZV, recombinant) 04/11/2021 Family History Medical History Relation Name Comments Arthritis Brother 2 Andreas Good Health Brother 3 Other Daughter Idalmis splenic rupture Arthritis Father Cancer Maternal Aunt 5 siblings of mother's with different cancers Stroke Maternal Grandfather Stroke Maternal Grandmother Cancer Mother Bone Cancer-breast Mother age 50, a t age 73 Psychiatric illness Mother Cancer Paternal Aunt three of three of grandparents siblings had different cancer Stroke Paternal Grandfather Stroke Paternal Grandmother Relation Name Status Comments Brother 1 Jeronimo (Age 68) Brother 2 Andreas Alive Brother 3 Daughter Idalmis (Age 34) Father Maternal Aunt Maternal Grandfather Maternal Grandmother Mother Paternal Aunt Paternal Grandfather Paternal Grandmother Social History Tobacco Use Types Packs/Day Years Used Date Smoking Tobacco: Former Cigarettes 1.5 25 0 07/27/1969 - 07/27/1994 Smokeless Tobacco: Never Tobacco Cessation:Counseling Given: Yes Alcohol Use Standard Drinks/Week Comments Not Currently 0 (1 standard drink = 0.6 oz pure alcohol) 03/06/2023 - currently abstaining PHQ-2 Answer Date Recorded PHQ-2 TOTAL SCORE 2 11/30/2024 Social Connections Answer Date Recorded Do you often feel lonely or isolated from those around you? 0 06/20/2024 Financial Resource Strain Answer Date R ecorded Difficulty of Paying Living Expenses 3 06/20/2024 Difficulty of Paying Living Expenses Not on file 06/20/2024 Food Insecurity Answer Date Recorded Do you worry your food will run out before you are able to buy more? 1 06/20/2024 Transportation Needs Answer Date Record ed Does lack of transportation keep you from medica l appointments? 1 06/20/2024 Does lack of transportation keep you from work, meetings or getting things that you need? 1 06/20/2024 Housing Stability Answer Date Recorded What is your housing situation today? 1 06/20/2024 Utilities Answer Date Recorded Do you have trouble paying f or utilities (for example, heat, electricity, water, phone)? 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 Not on file Not on file Obstetrics History Para Term AB IAB SAB Ectopic Multiple Livin g Live Births 0 0 0 0 0 0 0 0 0 0 0 Last Filed Vital Signs Vital Sign Reading Time Taken Comments Blood Pressure 103/68 11/30/2024 2:33 PM CDT Pulse 87 11/30/2024 2:33 PM CDT Temperature 36.3 C (97.3 F) 07/11/2024 3:00 PM CARE PROVIDER Respiratory Rate 16 07/11/2024 3:35 PM CARE PROVIDER Oxygen Saturation 97% 11/30/2024 2:33 PM CDT Inhaled Oxygen Concentration - - Weight 59.3 kg (130 lb 12.8 oz) 11/30/2024 2:33 PM CDT Height 168.9 cm (5' 6.5) 11/30/2024 2:33 PM CDT Body Mass Index 20.8 11/30/2024 2:33 PM CDT Plan of Treatment Upcoming Encounters Date Type Department Care Team (Late st Contact Info) Description 12/28/2024 3:30 PM CDT Office Visit [facility] [address] [place] [address] Elise Alvarez DO [address] [place] [address] 05/29/2025 1:00 PM CARE PROVIDER Orders Only [facility] [address] [place] [address] [place], [place] 05/29/2025 1:45 PM CARE PROVIDER Ancillary Procedure [facility] [address] [place] [address] 06/13/2025 12:15 PM CARE PROVIDER Telemedicine [facility] [address] [place] [phone] Gucci Parkinson MD [address] [facility] [address] [place] [address] Health Maintenance Due Date Last Done Comments RSV vaccine for adults or (1 - Risk 60-74 years 1-dose series) 2010 Zoster (shingles) series for age 50+ (2 of 2) 06/06/2021 04/11/2021 Influenza Vaccine (Season Ended) 2025 07/03/2009, 07/03/2009, 07/07/2005, Additional history exists BMI (ht and wt on same day) for age 18+ 11/30/2025 11/30/2024, 09/25/2023, 06/29/2023, Additional history exists Depression screening for age 12+ 12/01/2025 12/01/2024, 11/30/2024, 08/26/2023, Additional history exists Medicare Wellness for age 65+ 12/01/2025 11/30/2024, 06/29/2023, 11/14/2020, Additional history exists Tetanus booster 01/16/2027 01/16/2017, 02/02/2007 Lipids for age 45-75 11/30/2029 11/30/2024, 06/29/2023, 12/30/2021, Additional history exists COVID-19 vaccine series (#1) 07/20/2030 Postponed from 1955 (Patient discretion) Colonoscopy through age 75 05/02/203105/02, 05/02/2021, 05/02/2021 Tdap Completed 01/16/2017, 02/02/2007 DEXA/DXA scan for age 65+ Completed 04/03/2021, Pneumococcal series for age 50+ Completed 12/30/2021, 09/08/2016, 07/22/2004 Hepatitis C screening for age 18-79 Completed 06/29/2023 Hepatitis B series for 19+ Aged Out N o longer eligible based on patient's age to complete this topic Medical Devices Implanted Type Area Waste Specialist Device Identifier Shelf Expiration Date Model / Serial / Lot Palacos R + G Bone Cement With Gentamicin Implanted:Qty: 1 on 09/24/2016 by Darius Gonzalez MD at [facility] Right: Knee [employer] 04/25/2019 / / [id number] Palacos R + G Bone Cement With Gentamicin Implanted:Qty: 1 on 09/24/2016 by Darius Gonzalez MD at [facility] Right: Knee [employer] 07/26/2019 / / [id number] Femur Cemented Posterior Stabilized Narrow Implanted:Qty: 1 on 09/24/2016 by Darius Gonzalez MD at [facility] Right: Knee [employer] 06/25/2025 / / [id number] Natural Tibia Cemented 5 Degree Stemmed Implanted:Qty: 1 on 09/24/2016 by Darius Gonzalez MD at [facility] Right: Knee [employer] 04/25/2026 / / [id number] Stem Extension Tapered Cemented Implanted:Qty: 1 on 09/24/2016 by Darius Gonzalez MD at [facility] Right: Knee [employer] 08/26/2026 / / [id number] Vivacit-E Highly Crosslinked Polyethylene Articular Surface Fixed Bearing Constrained Posterior Stabilized Implanted:Qty: 1 on 09/24/2016 by Darius Gonzalez MD at [facility] Right: Knee [employer] 09/23/2020 / / [id number] Vivacit-E Highly Crosslinked Polyethylene All-Poly Patella Cemented Implanted:Qty: 1 on 09/24/2016 by Darius Gonzalez MD at [facility] Right: Knee [employer] 07/26/2021 / / [id number] Radiology Transcriptionist Breast 400cc Natrelle Smooth Full Variable W/Fourte - [id number] Implanted:Qty: 1 on 03/17/2023 by Talat Baugh MD at [facility] Left: Breast [employer] - Inamed 12/25/2026 133S-FV-12 -T / [id number] / [id number] Radiology Transcriptionist Breast 400cc Natrelle Smooth Full Variable W/Fourte - [id number] Implanted:Qty: 1 on 03/17/2023 by Talat Baugh MD at [facility] Right: Breast [employer] - Inamed 01/31/2027 133S-FV-12 -T / [id number] / [id number] Breast 255cc Natrelle Inspira Soft Touch Ssm - [id number] Implanted:Qty: 1 on 10/08/2023 by Talat Baugh MD at [facility] Left: Breast [employer] - Inamed 08/19/2027 SSM-255 / [id number] / [id number] Breast 295cc Natrelle Inspira Soft Touch Ssf - [id number] Implanted:Qty: 1 on 10/08/2023 by Talat Baugh MD at [facility] Right: Breast [employer] - Inamed 01/20/2026 SSF-295 / [id number] / [id number] Description:SN missing from chart entry; added 11/01/24. [facility] Procedures Procedure Name Priority Date/Time Associated Diagnosis Comments US NECK OR HEAD SOFT TISSUE Routine 12/05/2024 1:20 PM CDT Thyroid cancer (HC) VITAMIN B12 Routine 11/30/2024 3:35 PM CDT Peripheral sensory neuropathy COMP METABOLIC PANEL Routine 11/30/2024 3:35 PM CDT Rheumatoid arthritis involving multiple sites with positive rheumatoid factor (HC) HTN (hypertension) CBC WITH AUTO DIFFERENTIAL Routine 11/30/2024 3:35 PM CDT Rheumatoid arthritis involving multiple sites with positive rheumatoid factor (HC) LIPID PANEL W REFLEX MEASURED LDL Routine 11/30/2024 3:35 PM CDT Mixed hyperlipidemia THYROGLOBULIN ([facility] REFLEX ONLY) Routine 11/30/2024 3:34 PM CDT TSH Routine 11/30/2024 3:34 PM CDT Thyroid cancer (HC) THYROID CANCER (THYROGLOBULIN) MONITOR (QUEST) Routine 11/30/2024 3:34 PM CDT Thyroid cancer (HC) T4,FREE Routine 11/30/2024 3:34 PM CDT Thyroid cancer (HC) SCAN-EYE EXAM 11/18/2024 12:00 AM CDT ANTI HCV Routine 06/29/2023 3:30 PM CARE PROVIDER Need for hepatitis C screening test COLONOSCOPY SCREENING Routine 05/02/2021 10:51 AM CDT Screening for colon cancer XR DXA BONE DENSITY 2 SITES AXIAL Routine 04/03/2021 12:15 PM CDT Rheumatoid arthritis involving multiple sites with positive rheumatoid factor (HC) Asymptomatic postmenopausal state from Last 3 Months or Most Recently Relevant to Health Maintenance Results * US NECK OR HEAD SOFT TISSUE (12/05/2024 1:20 PM CDT) Anatomical Region Laterality Modality NECK Ultrasound 12/05/2024 2:36 PM CDT Impressions 12/05/2024 2:36 PM CDT No significant change since the prior study. Dictated by Bryan Stapleton MD @ 12/05/2024 2:36:44 PM (Electronically Signed) Narrative 12/05/2024 2:36 PM CDT For Patients: As a result of the Cures Act, medical imaging exams and procedure reports are released immediately into your electronic medical record. You may view this report before your referring provider. If you have questions, please contact your health care provider. INDICATION: Thyroid cancer COMPARISON: 06/24/2024 TECHNIQUE: Modi scale and color Doppler images were acquired of the thyroid bed. FINDINGS: Status post thyroidectomy. Similar right-sided lymph node measures 1.6 x 0.4 x 1.0 cm. Previously, this measured 18 x 10 x 6 millimeters. Also similar hyperechoic structure within the right side of the neck which measures 9 x 10 x 5 millimeters, previously measuring 11 x 9 x 7 millimeters. No abnormal vascularity. Procedure Note Bryan Stapleton MD - 12/05/2024 For Patients: As a result of the Cures Act, medical imagingexams and procedure reports are released immediately into your electronicmedical record. You may view this report before your referring provider.If you have questions, please contact your health care provider. INDICATION: Thyroid cancer COMPARISON: 06/24/2024 TECHNIQUE: Modi scale and color Doppler images were acquired of the thyroid bed. FINDINGS: Status post thyroidectomy. Similar right-sided lymph node measures 1.6 x0.4 x 1.0 cm. Previously, this measured 18 x 10 x 6 millimeters. Alsosimilar hyperechoic structure within the right side of the neck whichmeasures 9 x 10 x 5 millimeters, previously measuring 11 x 9 x 7millimeters. No abnormal vascularity. IMPRESSION: No significant change since the prior study. Dictated by Bryan Stapleton MD @ 12/05/2024 2:36:44 PM (Electronically Signed) us Gucci Parkisnon MD Final Result * (ABNORMAL) LIPID PANEL W REFLEX MEASURED LDL (11/30/2024 3:35 PM CDT) CHOLESTEROL, TOTAL 185 <200 mg/dL [facility] HDL CHOLESTEROL 58 > OR = 50 mg/dL [facility] TRIGLYCERIDES 101 <150 mg/dL [facility] LDL-CHOLESTEROL 108(H) mg/dL (calc) [facility] Comment: Reference range: <100 Desirable range <100 mg/dL for primary prevention; <70 mg/dL for patients with CHD or diabetic patients with > or = 2 CHD risk factors. LDL-C is now calculated using the Prabhu-Wanda calculation, which is a validated novel method providing better accuracy than the Friedewald equation in the estimation of LDL-C. Prabhu SS et al. LILLIAN. 2013;310(19): 2984-8923 (http://education.Scout.[employer]/faq/RSO042) CHOL/HDLC RATIO 3.2 <5.0 (calc) [facility] NON HDL CHOLESTEROL 127 <130 mg/dL (calc) [facility] Comment: For patients with diabetes plus 1 major ASCVD risk factor, treating to a non-HDL-C goal of <100 mg/dL (LDL-C of <70 mg/dL) is considered a therapeutic option. Blood BLOOD SPECIMEN / Unknown 11/30/2024 3:35 PM CDT 11/30/2024 3:35 PM CDT us Elise Alvarez DO CHEMISTRY Final Resul t [facility] [address] [place] [address], [place] [phone] [facility] [address] [place] [address] * (ABNORMAL) CBC AND DIFFERENTIAL (11/30/2024 3:35 PM CDT) WHITE BLOOD CELL COUNT 5.3 3.8 - 10.8 Thousand/u L [facility] RED BLOOD CELL COUNT 4.58 3.80 - 5.10 Million/uL [facility] HEMOGLOBIN 13.0 11.7 - 15.5 g/dL [facility] HEMATOCRIT 40.9 35.0 - 45.0 % [facility] MCV 89.3 80.0 - 100.0 fL [facility] MCH 28.4 27.0 - 33.0 pg [facility] MCHC 31.8(L) 32.0 - 36.0 g/dL [facility] Comment: For adults, a slight decrease in the calculated MCHC value (in the range of 30 to 32 g/dL) is most likely not clinically significant; however, it should be interpreted with caution in correlation with other red cell parameters and the patient's clinical condition. RDW 17.0(H) 11.0 - 15.0 % [facility] PLATELET COUNT 367 140 - 400 Thousand/u L [facility] MPV 8.9 7.5 - 12.5 fL [facility] ABSOLUTE NEUTROPHILS 3,106 1,500 - 7,800 cells/uL [facility] ABSOLUTE LYMPHOCYTES 1,145 850 - 3,900 cells/uL [facility] ABSOLUTE MONOCYTES 880 200 - 950 cells/uL [facility] ABSOLUTE EOSINOPHILS 80 15 - 500 cells/uL [facility] ABSOLUTE BASOPHILS 90 0 - 200 cells/uL [facility] NEUTROPHILS 58.6 % [facility] LYMPHOCYTES 21.6 % [facility] MONOCYTES 16.6 % [facility] EOSINOPHILS 1.5 % [facility] BASOPHILS 1.7 % [facility] Blood BLOOD SPECIMEN / Unknown 11/30/2024 3:35 PM CDT 11/30/2024 3:35 PM CDT us Elise Ocampo Detert DO HEMATOLOGY Final Resul t [facility] [address] [address], [facility] [address] [place] [phone] * VITAMIN B12 (11/30/2024 3:35 PM CDT) [facility] VITAMIN B12 532 200 - 1,100 pg/mL [facility] Blood BLOOD SPECIMEN / Unknown 11/30/2024 3:35 PM CDT 11/30/2024 3:35 PM CDT us Elise Acevedot DO CHEMISTRY Final Resul t Performing Organization Address City/[facility]/ZIP Co de Phone Number [facility] [address] [address], [facility] [address] [place] [address] * (ABNORMAL) COMP METABOLIC PANEL (11/30/2024 3:35 PM CDT) [facility] GLUCOSE 95 65 - 99 mg/dL [facility] Comment: Fasting reference interval UREA NITROGEN (BUN) 7 7 - 25 mg/dL [facility] CREATININE 1.20(H) 0.60 - 1.00 mg/dL [facility] EGFR 48(L) > OR = 60 mL/min/1.7 3m2 [facility] BUN/CREATININE RATIO 6 6 - 22 (calc) [facility] SODIUM 140 135 - 146 mmol/L [facility] POTASSIUM 4.4 3.5 - 5.3 mmol/L [facility] CHLORIDE 105 98 - 110 mmol/L [facility] CARBON DIOXIDE 26 20 - 32 mmol/L [facility] CALCIUM 8.3(L) 8.6 - 10.4 mg/dL [facility] PROTEIN, TOTAL 6.4 6.1 - 8.1 g/dL [facility] ALBUMIN 4.1 3.6 - 5.1 g/dL [facility] GLOBULIN 2.3 1.9 - 3.7 g/dL (calc) [facility] ALBUMIN/GLOBULIN RATIO 1.8 1.0 - 2.5 (calc) [facility] BILIRUBIN, TOTAL 0.4 0.2 - 1.2 mg/dL [facility] ALKALINE PHOSPHATASE 71 37 - 153 U/L [facility] AST 18 10 - 35 U/L [facility] ALT 13 6 - 29 U/L [facility] Blood BLOOD SPECIMEN / Unknown 11/30/2024 3:35 PM CDT 11/30/2024 3:35 PM CDT us Elise Ocampo Detert DO CHEMISTRY Final Resul t [facility] [address] [place] [address], [facility] [address] [place] [address] * (ABNORMAL) THYROGLOBULIN ([facility] REFLEX ONLY) (11/30/2024 3:34 PM CDT) THYROGLOBULIN 5.6(H) ng/mL [facility], Comment: Reference Range: Athyrotic: <0.1 Reference range applies to differentiated thyroid cancer patients following treatment. The presence of measurable thyroglobulin indicates the presence of thyroglobulin-producing thyroid tissue. Clinical correlation is advised. This Thyroglobulin test was performed using the Nathaly Kulwinder Chemiluminescent method. Values obtained from different assay methods cannot be used interchangeably. Thyroglobulin levels, regardless of value, should not be interpreted as absolute evidence of the presence or absence of disease. 11/30/2024 3:34 PM CDT 11/30/2024 3:34 PM CDT Gucci Parkinson MD SEND OUTS Final Result Performing Organization Address [facility] Co de Phone Number [facility]/Grid2020 [facility] [address] [place] [address], [facility], [address] [place] [address] * THYROID CANCER (THYROGLOBULIN) MONITOR ([facility]) (11/30/2024 3:34 PM CDT) THYROGLOBULIN ANTIBODY 1 < OR = 1 IU/mL [facility], Comment: This Thyroglobulin antibody test was performed using the Nathaly Byron Chemiluminescent method. Values obtained from different assay methods cannot be used interchangeably. Thyroglobulin antibody levels, regardless of value, should not be interpreted as absolute evidence of the presence or absence of disease. Blood BLOOD SPECIMEN / Unknown 11/30/2024 3:34 PM CDT 11/30/2024 3:34 PM CDT Gucci Parkinson MD SEND OUTS Final Result Performing Organization Address [facility] Co de Phone Number [facility]2020 [facility] [address] [place] [address], [facility] [facility], [address] [place] [address] * (ABNORMAL) TSH (11/30/2024 3:34 PM CDT) [facility] TSH 0.22(L) 0.40 - 4.50 mIU/L [facility] [facility] [place] Blood BLOOD SPECIMEN / Unknown 11/30/2024 3:34 PM CDT 11/30/2024 3:34 PM CDT Gucci Parkinson MD CHEMISTRY Final Result [facility] [address] [place] [phone], [facility] [address] [place] [address] * T4,FREE (11/30/2024 3:34 PM CDT) [facility] T4, FREE 1.8 0.8 - 1.8 ng/dL [facility] [facility] Blood BLOOD SPECIMEN / Unknown 11/30/2024 3:34 PM CDT 11/30/2024 3:34 PM CDT Gucci Parkinson MD CHEMISTRY Final Result Performing Organization Address [facility]/ZIP Co de Phone Number [facility] [address] [address], [facility] [address] [place] [address] * SCAN-EYE EXAM (11/18/2024 12:00 AM CDT) Scanner OTHER Final Result * ANTI HCV (06/29/2023 3:30 PM CARE PROVIDER) [facility] HEPATITIS C ANTIBODY Non-Reacti ve Non-React humphrey 06/29/2023 10:39 PM CARE PROVIDER [facility] Comment:Please note, per www .CDC.gov: If a patient is known to be at high risk of HCV infection, or is symptomatic, and the physician's suspicion of HCV infection is high, HCV RNA testing is often employed and is of diagnostic value, even after an initial negative anti-HCV test result. Blood BLOOD SPECIMEN / Unknown Venipuncture / Unknown 06/29/2023 3:30 PM CARE PROVIDER 06/29/2023 3:31 PM CARE PROVIDER Elise Alvarez DO SEND OUTS Final Resul t [facility] [address] [place] [address], [place] * COLONOSCOPY (05/02/2021 10:57 AM CDT) 05/02/2021 10:5 7 AM CDT Narrative Transcriptions Prabhu Grant MD - 05/02/2021 12:02 PM CDT Patient Name: Hazel Ewing Procedure Date: 05/02/2021 Gender: Female Date of : 1950 Admit Type: Outpatient Procedure: Colonoscopy Proceduralist: Prabhu Grant MD , Maria Del Rosario Tian (Nurse) Referring MD: Elise Alvarez Indications/Pre-Op Diagnosis: Screening for colorectal malignant neoplasm, Last colonoscopy: July 2005 Medications: Fentanyl 100 micrograms IV, Midazolam 4 mgIV, The level of sedation administered wasmoderate Procedure Description: The patient had risks, benefits and alternatives explained to andgave informed consent. The patient had a stable cardiopulmonary status and judged an adequate candidate for conscious sedation. The Colonoscope was passed through the anus and advanced to thececum, identified by appendiceal orifice and ileocecal valve. Thecolonoscopy was performed without difficulty. The patient tolerated the procedure well. The quality of the bowel preparation was good. The ileocecal valve, appendiceal orifice, and rectum were photographed. Complications: No immediate complications. Estimated Blood Loss & Specimen: Estimated blood loss: none. Specimen collected - None Findings: The perianal and digital rectal examinations were normal. The entire examined colon appeared normal on direct and retroflexion views. Impressions/Post-Op Diagnosis: - The entire examined colon is normal on direct and retroflexionviews. - No specimens collected. Recommendation: - Patient has a contact number available for emergencies. The signsand symptoms of potential delayed complications were discussed with the patient. Return to normal activities tomorrow. Written discharge instructions were provided to the patient. - Resume previous diet. - Continue present medications. - No repeat colonoscopy due to current age (66 years or older) andthe absence of advanced adenomas. Moderate Sedation: Moderate (conscious) sedation was administered by the endoscopy nurse and supervised by the endoscopist. The following parameters were monitored: oxygen saturation, heart rate, respiratory rate, blood pressure, adequacy of pulmonary ventilation and reponse to care. Please refer to the patient's medical record flowsheets and nursing notes for moderate sedation details. Total physician intraservice time was 27 minutes. Prabhu Grant MD 05/02/2021 12:02:28 PM This report has been signed electronically. Note Initiated On: 05/02/2021 10:57 AM Procedure Code(s): --- Professional --- 86548, Colonoscopy, flexible; diagnostic, including collection of specimen(s) bybrushing or washing, when performed (separateprocedure) Diagnosis Code(s): --- Professional --- Z12.11, Encounter for screening formalignant neoplasm of colon CPT copyright 2020 [employer]. All rights reserved. The codes documented in this report are preliminary and upon rope walker reviewmay be revised to meet current compliance requirements. Scope In: 11:28:44 AM Scope Withdrawal Time 0 hours 6 minutes 36 seconds Scope Out: 11:52:28 AM us Prabhu Grant MD PROCEDURE ORD Final Res ult * (ABNORMAL) XR DXA BONE DENSITY 2 SITES AXIAL (04/03/2021 12:15 PM CDT) Anatomical Region Laterality Modality Spine, HIPS, HIPL, HIPR Other Impressions 04/04/2021 12:53 PM CDT Osteoporosis. RECOMMENDATIONS: The National Osteoporosis Foundation recommends pharmacologic treatment for patients with T-scores of -2.5 or less, patients with prior history of fragility fractures, or patients with 10-year probability of greater than 3% at hips or greater than 20% of suffering major osteoporotic fractures. Recommend continued optimization of calcium and vitamin D intake through dietary means and/or supplementation and regular exercise. Continue current Alendronate (Fosamax) medication treatment if clinically appropriate. Follow-up scan in 2 to 3 years. Shannan Henao PA-C Narrative 04/04/2021 12:53 PM CDT For Patients: Results are automatically released to your [employer] account once available, in compliance with federal regulations. This means that you may see your results before your provider has had a chance to review them. Please allow 2-3 business days for your provider to comment on the results. XR DXA Bone Mineral Density (BMD) EXAM LOCATION: [address] [address] PATIENT NAME: Hazel Ewing DATE OF : 1950 EXAM DATE: 04/03/2021 REQUESTING PROVIDER: Elise Alvarez DO GENDER AT : female HEIGHT: 5' 6.25 (11/14/2020) WEIGHT: 137 lb (11/14/2020) MENOPAUSAL STATUS: Postmenopausal RACE/ETHNICITY: White RISK FACTORS: Alcohol > 3 drinks/day (prior), Rheumatoid Arthritis, Smoking (prior), Steroid Medication (non-topical) and White Race CURRENT MEDICATION FOR BONE LOSS: Alendronate (Fosamax) INDICATION: Follow-up of existing osteoporosis COMPARISON DATE(S): None available, previous scans through [facility] [place] DXA scans are compared to prior studies for a patient only when the two (or more) studies were performed on the same scanner. It is not possible to compare data generated on one scanner to data from another because there are not standards in DXA equipment. This applies even if the two scanners are made by the same gastroenterology professor. PROCEDURE: Dual-energy x-ray absorptiometry performed with routine technique. Reporting is completed in the form of a T-score. The T-score represents the standard deviation from peak bone mass based on young healthy adult. A Z-score is used for diagnosis in premenopausal women, and for men under the age of 50. FINDINGS: RESULT LUMBAR SPINE L1 - L4 BMD: 0.935 g/cm2 T-Score: -2.1 Z-Score: -0.3 RESULT FEMORAL NECK Right Femoral Neck BMD: 0.682 g/cm2 Right Femoral Neck T-Score: -2.6 Right Femoral Neck Z-Score: -0.8 Left Femoral Neck BMD: 0.644 g/cm2 Left Femoral Neck T-Score: -2.8 Left Femoral Neck Z-Score: -1.1 RESULT TOTAL HIP Right Total Femur BMD: 0.699 g/cm2 Right Hip T-Score: -2.5 Right Hip Z-Score: -0.9 Left Total Femur BMD: 0.663 g/cm2 Left Hip T-Score: -2.7 Left Hip Z-Score: -1.2 WHO criteria: Normal: T-score at or above -1 SD Osteopenia: T-score between -1.1 and -2.4 SD Osteoporosis: T-score at or below -2.5 SD Elise Alvarez DO DEXA Final Resul t from Last 3 Months or Most Recently Relevant to Health Maintenance Additional Health Concerns Infection Onset Date Last Indicated MRSA Clearance Comment:Infection Control Note: Hx of MRSA, surveillance criteria met, no need for further testing or isolation precautions. Do not delete or deactivate the FYI. 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 Expl anation Healthcare Directive 01/01/2021 021 * Full Code (Latest Code Status on File) Date Activated Date Inactivated Comments 07/11/2024 11:10 AM 07/11/2024 7:07 PM Question Answer Comments Code Status Discussion: Reviewed Preferences * Full Code Date Activated Date Inactivated Comments 10/08/2023 11:41 AM 10/08/2023 6:33 PM Question Answer Comments Code Status Discussion: Reviewed Preferences * Full Code Date Activated Date Inactivated Comments 03/17/2023 11:21 AM 03/17/2023 7:39 PM Question Answer Comments Code Status Discussion: Reviewed Preferences * Full Code Date Activated Date Inactivated Comments 12/11/2022 11:03 AM 12/12/2022 2:28 AM Question Answer Comments Code Status Discussion: Reviewed Preferences * Full Code Date Activated Date Inactivated Comments 07/09/2022 1:35 PM 07/09/2022 9:34 PM Question Answer Comments Code Status Discussion: Reviewed Preferences Care Teams Front Line Leader Relationship Specialty Start Date End Date [place] [address] PCP - General Family Practice 03/31/12 Gucci Parkinson MD [address] [facility] [address] [place] [address] Endocrinology 10/27/22
--- NOTE | 2024-12-23 11:11 | ED.ALCOHOL ---
HPI - Alcohol General Date Seen: 12/23/24 Chief Complaint: Alcohol/Intoxication Stated Complaint: Alcohol withdrawal Time Seen by Provider: 12/23/24 10:33 Source: patient Mode of arrival: ambulatory Limitations: no limitations History of Present Illness HPI narrative: Patient is a 74-year-old female with a history of alcohol abuse presenting to the emergency department for concerns of alcohol withdrawal. She states she has been drinking mostly wine in these 2 falls today for quite a while now. She has quit drinking before in states she is trying to quit again. She last drink a glass a wine yesterday morning around 08:00. She states as well half a glass wine. Since then she tried to separate times to take a shot of whiskey able times vomited right after. Her refused to by her more alcohol so she states she was driving to the liquor store today when she states she felt terrible and believe she was having signs of alcohol withdrawal. She has got a detox before but does not want to go detox this time. Her states all of the occult whole is now gone from their house. He states he would prefer the patient go to detox but she is refusing at this time. She denies fevers, chills, chest pain, shortness of breath, abdominal pain, headache, lightheadedness, dizziness. Does states she has had some diaphoresis and feels tremulous. Has not had any hallucinations. Related Data Previous Rx's ?Medication ?Instructions ?Recorded lorazepam 0.5 mg tablet (Ativan) 0.5 mg PO BID PRN #14 tabs 05/26/22 chlordiazepoxide HCl 25 mg capsule See Rx Instructions .Route 12/23/24 .COMPLEX PRN #12 caps Allergies Allergy/AdvReac Type Severity Reaction Status Date / Time No Known Drug Allergies Allergy Verified 12/23/24 10:07 Review of Systems Status of ROS Reports: 10 or more systems reviewed and unremarkable except as noted in History and below PFSH PFS Social History Smoking Status: Former smoker How often do you have a drink containing alcohol: 4 or more times a week How many standard drinks containing alcohol do you have on a typical day: 7 to 9 How often do you have six or more drinks on one occasion: Daily or almost daily AUDIT-C Alcohol total score: 11 Non-prescribed substance use: other Non-prescribed substance use details: KATIE kauffman service: No Exam Narrative: Exam Narrative: Const: Well-nourished, Well-developed, in mild distress Eyes: PERRL, no conjunctival injection, and symmetrical lids HENT: Atraumatic external nose and ears. Moist mucous membranes. Neck: Symmetric, trachea midline, No thyromegaly. CVS: RRR, No murmurs or gallops. Peripheral pulses 2+ and equal in all extremities RESP: Unlabored respiratory effort. Clear to auscultation bilaterally. GI: Nontender/Nondistended, No rebound or guarding. MSK:Extremities w/o deformity, Normal Active ROM Skin: Warm, Dry. No rashes or lesions. Neuro: Normal Muscle tone, No focal neurological deficits. Psych: Awake, Alert, & Oriented x3. Appropriate mood and affect. Const: Vital Signs, click to edit/add: Vital Signs - 24 hr 12/23/24 10:07 12/23/24 10:30 12/23/24 11:00 Temperature 98.3 F Pulse Rate 82 Pulse Rate [Pulse Oximeter] 91 Respiratory Rate 18 Blood Pressure Blood Pressure [Ri ght Upper Arm] 142/119 H Pulse Oximetry 96 97 97 Oxygen Delivery Me thod Room Air 12/23/24 11:00 12/23/24 11:14 12/23/24 11:38 Temperature Pulse Rate 79 82 Pulse Rate [Pulse Oximeter] Respiratory Rate Blood Pressure 166/102 H Blood Pressure [Ri ght Upper Arm] Pulse Oximetry 95 99 Oxygen Delivery Me thod 12/23/24 12:34 12/23/24 13:23 Temperature Pulse Rate 78 Pulse Rate [Pulse Oximeter] 81 Respiratory Rate 18 16 Blood Pressure 139/91 H Blood Pressure [Ri ght Upper Arm] 144/115 H Pulse Oximetry 95 97 Oxygen Delivery Me thod Room Air Room Air Course Vital Signs Vital signs: Initial Vital Signs Temperature 98.3 F 12/23/24 10:07 Temperature Source Temporal Artery Scan 12/23/24 10:07 Pulse Rate 91 12/23/24 10:07 Respiratory Rate 18 12/23/24 10:07 Blood Pressure 142/119 H 12/23/24 10:07 Blood Pressure Mean 126 H 12/23/24 10:07 Pulse Oximetry 96 12/23/24 10:07 Oxygen Delivery Method Room Air 12/23/24 10:07 Vital Signs Temperature 98.3 F 12/23/24 10:07 Pulse Rate 91 12/23/24 10:07 Respiratory Rate 18 12/23/24 10:07 Blood Pressure 142/119 H 12/23/24 10:07 Pulse Oximetry 96 12/23/24 10:07 Oxygen Delivery Method Room Air 12/23/24 10:07 Temperature 98.3 F 12/23/24 10:07 Pulse Rate 78 12/23/24 13:23 Respiratory Rate 16 12/23/24 13:23 Blood Pressure 139/91 H 12/23/24 13:23 Pulse Oximetry 97 12/23/24 13:23 Oxygen Delivery Method Room Air 12/23/24 13:23 Medications Administered Medications: Discontinued Medications Generic Name Dose Route Start Last Admin Trade Name Freq PRN Reason Stop Dose Admin Lorazepam 1 mg 12/23/24 10:50 12/23/24 11:13 Lorazepam 1 Mg Tablet PO 12/23/24 10:51 1 mg ONCE ONE Administration MDM - Alcohol MDM Narrative Medical decision making narrative: Patient is a 74-year-old female presenting for alcohol withdrawal symptoms. She has not had any alcohol for over 24 hours at this point. Is tremulous. Initial CIWA was 17. Was given some oral Ativan for this. Also check a CBC, BMP, liver panel. Lab work all returned no concerning findings. Sodium slightly low at 131 but is not low enough to be of concern. We monitor her for several hours and she had multiple CIWA scores ten and below. Vital signs have improved. Tremulousness has improved significantly. At this time I spoke to both her and her about possibly sending her home with chlordiazepoxide. I informed both of them that she can have absolutely no alcohol while using this medication. Her states that was normal alcohol left the house and he will make sure she does not drink any alcohol. Patient also states she understands. Prescription sent. She will be discharged Lab Data Labs: Lab Results 12/23/24 12/23/24 Range/Units 11:16 11:35 WBC 9.81 (4.50-11.00) K/uL RBC 4.68 (4.00-5.20) m/uL Hgb 13.7 (12.0-16.0) gm/dL Hct 42.2 (33.0-51.0) % MCV 90 (80-100) fL MCH 29 (26-34) pg MCHC 33 (32-36) gm/dL RDW Coeff of Shubham 18.6 H (11.5-15.5) % Plt Count 194 (140-440) K/uL Neut % (Auto) 85.4 H (42.0-72.0) % Lymph % (Auto) 4.5 L (20-44) % Mcculloch % (Auto) 9.2 (0.0-11.0) % Eos % (Auto) 0.2 (0.0-7.0) % Baso % (Auto) 0.1 (0.0-3.0) % Neut # (Auto) 8.40 H (1.7-7.0) K/uL Lymph # (Auto) 0.40 L (0.90-2.90) K/uL Mcculloch # (Auto) 0.90 (0.00-0.90) K/UL Eos # (Auto) 0.02 (0.00-0.50) K/uL Baso # (Auto) 0.01 (0.00-0.30) K/uL Abs Immat Gran (auto) 0.06 (0.00-0.30) K/uL Imm/Tot Granulo (auto) 0.6 % Sodium 131 L (135-149) mmol/L Potassium 3.8 (3.6-5.1) mmol/L Chloride 96 (96-114) mmol/L Carbon Dioxide 26 (20-32) mmol/L Anion Gap 9 (7-15) mEq/L BUN 4 L (7-30) mg/dL Creatinine 0.6 (0.5-1.5) mg/dL Estimated Creat Clear 45.95 Estimated GFR 94 ml/min Glucose 107 (60-115) mg/dL Calcium 8.0 L (8.4-10.6) mg/dL Magnesium 1.9 (1.5-2.6) mg/dL Total Bilirubin 1.8 H (0.1-1.5) mg/dL Direct Bilirubin 0.2 (0.0-0.5) mg/dL AST 54 H (12-35) U/L ALT 26 (4-35) U/L Alkaline Phosphatase 138 (40-150) U/L Total Protein 7.1 (6.0-8.3) g/dL Albumin 4.2 (3.3-5.0) g/dL Lab Acknowledgement Test Added Discharge Plan Discharge Clinical Impression: Alcohol withdrawal syndrome Qualifiers: Complication of substance-induced condition: uncomplicated Qualified Code(s): F10.930 - Alcohol use, unspecified with withdrawal, uncomplicated Patient Disposition: Home, Self-Care Condition: Improved Instructions: Alcohol Withdrawal (DC) Additional Instructions: Use the prescribed medication. Do not take more than prescribed. Do not drink any alcohol while taking this medication. Return to emergency department for new or worsening symptoms Prescriptions: New chlordiazepoxide HCl 25 mg capsule See Rx Instructions .ROUTE .COMPLEX PRNQty: 12 0RF Rx Instructions: 50 mg PO every 8 hours on d 1; 25 mg PO every 8 hours on d 2; 25 mg PO q12h on d 3; 25 mg PO at night on d 4 No Action lorazepam [Ativan] 0.5 mg tablet 0.5 mg PO BID PRNQty: 14 0RF Follow Up/Referrals: Elise Alvarez DO [Primary Care Provider, Family Practice] Stand Alone Forms: [employer] Info Instructions
[2024-12-23] MEDS: LORazepam 1 MG TABLET PO (11:13)
[2024-12-23 11:22] LABS: Basophils Absolute Auto 0.01 K/uL (0.00-0.30); Basophils Percent Auto 0.1 % (0.0-3.0); Eosinophils Absolute Auto 0.02 K/uL (0.00-0.50); Eosinophils Percent Auto 0.2 % (0.0-7.0); Hematocrit 42.2 % (33.0-51.0); Hemoglobin* 13.7 gm/dL (12.0-16.0); Immature Granulocytes Abs Auto 0.06 K/uL (0.00-0.30); Immature Granulocytes Pct Auto 0.6 %; Lymphocytes Percent Auto 4.5 % (20-44); Mean Corpuscular HGB Conc 33 gm/dL (32-36); Mean Corpuscular Hemoglobin 29 pg (26-34); Mean Corpuscular Volume 90 fL (80-100); Monocytes Percent Auto 9.2 % (0.0-11.0); Neutrophils Percent Auto 85.4 % (42.0-72.0); Platelet Count* 194 K/uL (140-440); RDW Coefficient of Variation % 18.6 % (11.5-15.5); Red Blood Count 4.68 m/uL (4.00-5.20); White Blood Count* 9.81 K/uL (4.50-11.00)
[2024-12-23 11:24] LABS: Slide Review Reflex No
[2024-12-23 11:36] LABS: Albumin* 4.2 g/dL (3.3-5.0); Chloride* 96 mmol/L (96-114); Potassium* 3.8 mmol/L (3.6-5.1); Sodium* 131 mmol/L (135-149)
[2024-12-23 11:39] LABS: Alanine Aminotransferase* 26 U/L (4-35); Alkaline Phosphatase* 138 U/L (40-150); Anion Gap 9 mEq/L (7-15); Aspartate Amino Transferase* 54 U/L (12-35); Bilirubin Direct* 0.2 mg/dL (0.0-0.5); Bilirubin Total* 1.8 mg/dL (0.1-1.5); Blood Urea Nitrogen* 4 mg/dL (7-30); Carbon Dioxide* 26 mmol/L (20-32); Creatinine* 0.6 mg/dL (0.5-1.5); Est. Creatinine Clearance* 45.95; Estimated Glomerular Filt Rate 94 ml/min; Glucose* 107 mg/dL (60-115); Total Protein* 7.1 g/dL (6.0-8.3)
[2024-12-23 11:50] LABS: Magnesium* 1.9 mg/dL (1.5-2.6)
== END 2024-12-23 14:04 | disposition home or self-care (01) ==
PROVIDERS: Emergency Provider Student in an Organized Health Care Education/Training Program; PCP Family Medicine
DX: F10.239 Alcohol dependence with withdrawal, unspecified (principal)
CPT/HCPCS: 36415; 80048; 80076; 83735; 85025; 94761; 99283; 99284; A9270